=== PATIENT | female | born 1940 | race Caucasian/White ===

== ENCOUNTER → 2017-12-03 10:08 | Outpatient (CLI) | payer MEDICARE, SELFPAY ==
--- NOTE | 2017-12-05 08:51 | PM.PFT.1 ---
Pulmonary Function Test Referral & Results Date Patient Seen: 12/03/17 Requesting provider: Alan Stanley Results: The spirometry demonstrates an FVC of 2.68 L which is 84% of predicted. The FEV1 was measured at 1.76 L which is 73% of predicted. The FEV1/FVC ratio was 65 which is 88% of predicted. Following the administration of bronchodilator there was no appreciable change. Lung volumes show an SVC of 2.80 L which is 90% of predicted. The diffusing capacity was measured at 20.07 which is 67% of predicted. No hemoglobin value was provided, so no correction for potential anemia could be made, if appropriate. The maximum voluntary ventilation was reduced. Interpretation: This study demonstrates mild to moderate obstructive lung disease without evidence of significant benefit following bronchodilator administration There is also a modest reduction in diffusing capacity, assuming patient is not anemic. This suggest disease at the capillary alveolar level
== END ==
PROVIDERS: Visit Provider Student in an Organized Health Care Education/Training Program
DX: R06.09 Other forms of dyspnea (principal)
CPT/HCPCS: 94010; 94060; 94729